=== PATIENT | male | born 2000 | race Two or more races ===

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

== ENCOUNTER 2023-05-20 10:37 | Emergency (ER) | payer MEDICAID ==
[~2023-05-20] VITALS: Ht 167.6 cm; Wt 69.9 kg
[2023-05-20 12:10] VITALS: BP 113/83; PULSE 66; RESP 18; TEMP 98.1; O2SAT 99
[2023-05-20] MEDS ORDERED: IBUP-1454 PO (13:35)
[2023-05-20] MEDS ORDERED: CEPH500C PO (13:35)
== END 2023-05-20 13:42 | disposition home or self-care (01) ==
LOC: ER 10:37
DX: L73.9 Follicular disorder, unspecified (principal)

== ENCOUNTER 2024-04-27 14:37 | Inpatient (IN) | payer MEDICAID ==
[~2024-04-27] VITALS: Ht 162.6 cm; Wt 66.6 kg
[~2024-04-27 14:37] MED LIST: CEPH500C PO; IBUP-1454 PO
[2024-04-27 15:00] VITALS: PULSE 81; RESP 16; O2SAT 99
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
[2024-04-27] MEDS: SODIUM CHLORIDE 0.9% 1,000 ML IV ONE (15:16)
[2024-04-27 15:45] LABS: Basophils # (auto) 0 10 ^3/uL (0-0.2); Basophils % (auto) 0.4 % (0.0-2.0); Eosinophils # (auto) 0.1 10 ^3/uL (0-0.8); Eosinophils % (auto) 1.6 % (0.0-7.0); Hematocrit 48.1 % (41.0-53.0); Hemoglobin 16.6 g/dL (13.5-17.5); Lymphocytes # (auto) 1.7 10 ^3/uL (0.4-5.4); Lymphocytes % (auto) 26.1 % (10.0-50.0); Mean Corpuscular Hemoglobin 32.3 pg (28.0-32.0); Mean Corpuscular Hgb Conc. 34.5 g/dL (32.0-36.0); Mean Corpuscular Volume 93.5 fL (80.0-100.0); Monocytes # (auto) 0.4 10 ^3/uL (0-1.3); Monocytes % (auto) 6.8 % (0.0-12.0); Neutrophils # (auto) 4.2 10 ^3/uL (1.6-8.6); Neutrophils % (auto) 65.1 % (37.0-80.0); Nucleated Red Blood Cells % 0.2 %; Platelet Count (auto) 184 10^3/uL (140-450); Red Blood Cells 5.14 10^6/uL (4.5-5.90); Red Cell Distribution Width 13.5 % (11.8-14.3); White Blood Cell 6.4 10^3/uL (4.4-10.8)
[2024-04-27 15:50] LABS: Urine Bacteria None Seen /hpf (None Seen)
[2024-04-27] MEDS: levETIRAcetam 1000 mg/100ml 100 ML IV ONE (15:56)
[2024-04-27 16:12] LABS: Urine Blood Negative /uL (Negative); Urine Clarity Clear (Clear); Urine Color Colorless (Yellow); Urine Protein, UAD Negative (Negative); Urine Urobilinogen Normal (Negative); Urine WBC <1 /hpf (0 - 3); Urine pH 6.5 (5.0-9.0)
--- NOTE | 2024-04-27 16:12 | DVH ---
CHEST RADIOGRAPH Indication: syncope Technique: Single frontal view of the chest was obtained Comparison: None FINDINGS: Lines and Tubes: None Lungs: No focal consolidation. Pleura: No effusion. No pneumothorax. Cardiomediastinal contours: Unremarkable Bones: No acute osseous abnormality. IMPRESSION: No acute cardiopulmonary disease.
[2024-04-27 16:15] LABS: Amphetamine Screen, Urine Neg (NEGATIVE); Barbiturate Scree,Urine Neg (NEGATIVE); Benzodiazephine Screen, Urine Neg (NEGATIVE); Cannabinoid Screen, Urine Neg (NEGATIVE); Cocaine Screen, Urine Neg (NEGATIVE); Opiate Scree,Urine Neg (NEGATIVE); Phencyclidine Screen, Urine Neg (NEGATIVE)
--- NOTE | 2024-04-27 16:17 | DVH ---
EXAM: CT HEAD WITHOUT CONTRAST INDICATION: syncope TECHNIQUE: CT of the head without intravenous contrast. Radiation Dose Information: CT Dose: CTDI volume is 52.98 mGy. Dose-length product is 849.43 mGy*cm The dose indicators for CT are the volume Computed Tomography (CT) Dose Index (CTDIvol) and the Dose Length Product (DLP), and are measured in units of mGy and mGy-cm, respectively. These indicators are not patient dose, but values generated from the CT scanner acquisition factors. The report includes radiation exposure data for exposures received during this examination. COMPARISON: None FINDINGS: There is no evidence of acute intracranial hemorrhage, extra-axial collection, mass effect, midline s hift, herniation or hydrocephalus. The ventricles, sulci and cisterns are age appropriate. The liz-white differentiation is intact. Patchy periventricular and subcortical white matter hypoattenuation is nonspecific but may be related to small vessel ischemic disease. The visualized paranasal sinuses and mastoid air cells are clear. The surrounding soft tissues and osseous structures are unremarkable. IMPRESSION: 1. No acute intracranial hemorrhage.' 2. No CT findings of territorial ischemia.
[2024-04-27 16:45] LABS: Alanine Aminotransferase 19 U/L (7-40); Albumin 4.6 g/dL (3.2-4.8); Anion Gap 9 (5-15); BUN/Creatinine Ratio 10.1 (10.0-20.0); Blood Urea Nitrogen 9 mg/dL (9-23); Calcium 9.7 mg/dL (8.7-10.4); Carbon Dioxide 25 mmol/L (20-31); Glucose 96 mg/dL (74-106); Potassium 4.1 mmol/L (3.5-5.1); Sodium 142 mmol/L (136-145)
[2024-04-27 16:46] LABS: Bilirubin, Total 0.5 mg/dL (0.2-1.0)
[2024-04-27 16:47] LABS: Alkaline Phosphatase 143 U/L (46-116); Aspartate Aminotransferase < 8 U/L (13-40); Blood Alcohol < 3.0 mg/dL (<10); Chloride 108 mmol/L (98-107)
[2024-04-27 19:24] VITALS: PULSE 83; RESP 13; O2SAT 98
[2024-04-27] MEDS ORDERED: HYDROcodone-ACET 5/325MG TAB PO PRN (21:00)
[2024-04-27] MEDS ORDERED: ONDANSETRON HCL 4 MG/2 ML VIAL IV PRN (21:00)
[2024-04-27] MEDS ORDERED: ACETAMINOPHEN 325 MG TAB PO PRN (21:00)
[2024-04-27] MEDS ORDERED: DOCUSATE SOD 100 MG CAP PO PRN (21:00)
[2024-04-27] MEDS: SODIUM CHLOR 0.9% PF (SALINE LOCK) 10ML VIAL/SYR IV SCH (22:11)
[2024-04-27] MEDS ORDERED: NITROGLYCERIN 0.4 MG SL TAB SL PRN (22:30)
[2024-04-27] MEDS ORDERED: MORPHINE SULFATE INJ 2 MG/ml SYRG IV PRN (22:30)
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
[2024-04-27] MEDS ORDERED: CARB200T4 PO (23:47)
[2024-04-28] MEDS: levETIRAcetam 500 mg/100ml 100 ML IV SCH (02:33)
[2024-04-28 07:03] LABS: Basophils # (auto) 0.1 10 ^3/uL (0-0.2); Basophils % (auto) 1.4 % (0.0-2.0); Eosinophils # (auto) 0.2 10 ^3/uL (0-0.8); Eosinophils % (auto) 4.3 % (0.0-7.0); Hematocrit 44.5 % (41.0-53.0); Hemoglobin 15.5 g/dL (13.5-17.5); Lymphocytes # (auto) 2.1 10 ^3/uL (0.4-5.4); Lymphocytes % (auto) 52.3 % (10.0-50.0); Mean Corpuscular Hemoglobin 32.7 pg (28.0-32.0); Mean Corpuscular Hgb Conc. 34.8 g/dL (32.0-36.0); Mean Corpuscular Volume 93.9 fL (80.0-100.0); Monocytes # (auto) 0.3 10 ^3/uL (0-1.3); Monocytes % (auto) 7.5 % (0.0-12.0); Neutrophils # (auto) 1.4 10 ^3/uL (1.6-8.6); Neutrophils % (auto) 34.5 % (37.0-80.0); Nucleated Red Blood Cells % 0.1 %; Platelet Count (auto) 170 10^3/uL (140-450); Red Blood Cells 4.74 10^6/uL (4.5-5.90); Red Cell Distribution Width 13.6 % (11.8-14.3); White Blood Cell 3.9 10^3/uL (4.4-10.8)
[2024-04-28 07:24] LABS: Alanine Aminotransferase 14 U/L (7-40); Albumin 4.2 g/dL (3.2-4.8); Anion Gap 7 (5-15); BUN/Creatinine Ratio 10.5 (10.0-20.0); Bilirubin, Total 0.6 mg/dL (0.2-1.0); Calcium 9.7 mg/dL (8.7-10.4); Carbon Dioxide 27 mmol/L (20-31); Glucose 91 mg/dL (74-106); Potassium 4.2 mmol/L (3.5-5.1); Sodium 143 mmol/L (136-145); Total Protein 6.3 g/dL (5.7-8.2)
[2024-04-28 07:30] VITALS: PULSE 91; RESP 14; O2SAT 98
[2024-04-28 07:40] LABS: Alkaline Phosphatase 129 U/L (46-116); Aspartate Aminotransferase < 8 U/L (13-40); Blood Urea Nitrogen 9 mg/dL (9-23); Chloride 109 mmol/L (98-107)
--- NOTE | 2024-04-28 13:25 | DVHPN2 ---
Reviewed: Care Plan, H&P, Labs, Medications, Previous Orders, Radiology Changes from previous H/P or p: No Changes Eyes: No Pain, No Vision change, No Conjunctivae inflammation, No Eyelid inflammation, No Other, No Redness ENT: No Ear pain, No Ear discharge, No Nose pain, No Nose discharge, No Nose congestion, No Mouth pain, No Mouth swelling, No Throat pain, No Throat swelling, No Other Cardiovascular: No Chest Pain, No Palpitations, No Orthopnea, No Paroxysmal Noc. Dyspnea, No Edema, No Lt Headedness, No Other Respiratory: No Cough, No Dry, No Shortness of breath, No SOB with excertion, No Wheezing, No Hemoptysis, No Pleuritic Pain, No Sputum, No Other Gastrointestinal: No Nausea, No Vomiting, No Abdominal Pain, No Diarrhea, No Constipation, No Melena, No Hematochezia, No Other Genitourinary: No Dysuria, No Frequency, No Incontinence, No Hematuria, No Retention, No Other Musculoskeletal: No other, No neck pain, No shoulder pain, No arm pain, No back pain, No hand pain, No leg pain, No foot pain Skin: No Rash, No Lesions, No Jaundice, No Bruising, No Other Objective Vitals Vital Signs Date Time Temp Pulse Resp B/P (MAP) Pulse Ox O2 Delivery O2 Flow Rate FiO2 04/28/24 11:30 54 04/28/24 08:34 14 114/40 (64) 98 04/28/24 07:30 Room Air* 0 21 04/27/24 19:22 98.2 98.2 Intake/Output Intake and Output 04/28/24 07:00 Intake Total 1100 ml Output Total 850 ml Balance 250 ml Intake IV Total 1100 ml Output Urine Total 850 ml Medications Current Medications Medications Dose Ordered Sig/Kyung Route Start Time Stop Time Status Last Admin Dose Admin Levetiracetam 100 ml @ 400 mls/hr Q12H IV 04/28/24 03:00 04/28/24 02:33 400 MLS/HR Sodium Chloride 10 ml Q8HR IV 04/27/24 22:00 04/28/24 05:31 10 ML Acetaminophen/ Hydrocodone Bitart 1 tab Q4HP PRN PO 04/27/24 21:00 Ondansetron HCl 4 mg Q4HP PRN IV 04/27/24 21:00 Docusate Sodium 100 mg BIDPRN PRN PO 04/27/24 21:00 Acetaminophen 650 mg Q6HP PRN PO 04/27/24 21:00 Nitroglycerin 0.4 mg Q5MINP PRN SL 04/27/24 22:30 Morphine Sulfate 2 mg Q30M PRN IV 04/27/24 22:30 Laboratory Results Laboratory Tests 04/28/24 06:36 Chemistry Test 04/27/24 16:20 04/28/24 06:36 Albumin 4.6 g/dL (3.2-4.8) 4.2 g/dL (3.2-4.8) Calcium Level 9.7 mg/dL (8.7-10.4) 9.7 mg/dL (8.7-10.4) Total Protein 7.0 g/dL (5.7-8.2) 6.3 g/dL (5.7-8.2) Cardiac Markers Test 04/27/24 15:13 B-Type Natriuretic Peptide 1.45 pg/mL (0-100) LFT Test 04/27/24 16:20 04/28/24 06:36 Alanine Aminotransferase (ALT) 19 U/L (7-40) 14 U/L (7-40) Alkaline Phosphatase 143 U/L (46-116) H 129 U/L (46-116) H Aspartate Amino Transferase (AST) < 8 U/L (13-40) L < 8 U/L (13-40) L Total Bilirubin 0.5 mg/dL (0.2-1.0) 0.6 mg/dL (0.2-1.0) Urinalysis Test 04/27/24 15:39 Urine Color Colorless (Yellow) Urine Clarity Clear (Clear) Urine pH 6.5 (5.0-9.0) Urine Specific [place] 1.010 (1.001-1.035) Urine Protein Negative (Negative) Urine Ketones Negative (Negative) Urine Blood Negative /uL (Negative) Urine Nitrite Negative (Negative) Urine Bilirubin Negative (Negative) Urine Urobilinogen Normal mg/dL (Negative) Urine Leukocyte Esterase Negative /uL (Negative) Urine RBC <1 /hpf (0 - 3) Urine WBC <1 /hpf (0 - 3) Urine Squamous Epithelial Cells None seen /hpf (<5) Urine Bacteria None seen /hpf (None Seen) Urine Glucose Normal mg/dL (Normal) Labs and/or images reviewed: Labs reviewed by me, Image(s) reviewed by me Assessment/Plan Assessment/Plan Breakthrough seizures: Brigidora History of seizures Noncompliance CT head negative Plan discussed with: Patient Date of Service: Apr 28, 2024 Billing Provider: CHERELLE MCCLELLAN MD Common Visit Codes: [id number] INP/OBS CARE(HIGH) CHERELLE MCCLELLAN MD Apr 28, 2024 13:25
[2024-04-28 21:30] VITALS: BP 116/81; PULSE 68; RESP 20; TEMP 97.1; O2SAT 97
[2024-04-28 22:13] VITALS: BP 116/81; PULSE 68; RESP 20; TEMP 97.1; O2SAT 97
[2024-04-29 01:00] VITALS: BP 115/61; PULSE 71; RESP 18; TEMP 97.3; O2SAT 100
[2024-04-29 05:00] VITALS: BP 99/74; PULSE 69; RESP 18; TEMP 97.6; O2SAT 99
[2024-04-29 08:05] VITALS: PULSE 87
[2024-04-29 09:32] VITALS: BP 124/67; PULSE 83; RESP 15; TEMP 98.3; O2SAT 97
[2024-04-29 13:00] VITALS: BP 123/60; PULSE 68; RESP 15; TEMP 97.5; O2SAT 99
[2024-04-29 13:03] LABS: Hepatitis B Surface Antigen Negative (Negative)
[2024-04-29 13:24] LABS: Hepatitis C Antibody Negative (Negative)
[2024-04-29] MEDS ORDERED: KEP500T PO (13:26)
--- NOTE | 2024-04-29 15:22 | DVHDS2 ---
Discharge Summary Date of Admission Apr 27, 2024 at 22:29 Date of Discharge: Apr 29, 2024 Labs/Diagnostic Data: Laboratory Results Test 04/29/24 05:54 04/28/24 06:36 04/27/24 18:10 04/27/24 16:20 Hepatitis B Surface Antigen Negative (Negative) Hepatitis C Antibody Negative (Negative) White Blood Count 3.9 10^3/uL (4.4-10.8) Red Blood Count 4.74 10^6/uL (4.5-5.90) Hemoglobin 15.5 g/dL (13.5-17.5) Hematocrit 44.5 % (41.0-53.0) Mean Corpuscular Volume 93.9 fL (80.0-100.0) Mean Corpuscular Hemoglobin 32.7 pg (28.0-32.0) Mean Corpuscular Hemoglobin Concent 34.8 g/dL (32.0-36.0) Red Cell Distribution Width 13.6 % (11.8-14.3) Platelet Count 170 10^3/uL (140-450) Mean Platelet Volume 9.2 fL (6.9-10.8) Neutrophils (%) (Auto) 34.5 % (37.0-80.0) Lymphocytes (%) (Auto) 52.3 % (10.0-50.0) Monocytes (%) (Auto) 7.5 % (0.0-12.0) Eosinophils (%) (Auto) 4.3 % (0.0-7.0) Basophils (%) (Auto) 1.4 % (0.0-2.0) Neutrophils # (Auto) 1.4 10 ^3/uL (1.6-8.6) Lymphocytes # (Auto) 2.1 10 ^3/uL (0.4-5.4) Monocytes # (Auto) 0.3 10 ^3/uL (0-1.3) Eosinophils # (Auto) 0.2 10 ^3/uL (0-0.8) Basophils # (Auto) 0.1 10 ^3/uL (0-0.2) Nucleated Red Blood Cells 0.1 % Sodium Level 143 mmol/L (136-145) Potassium Level 4.2 mmol/L (3.5-5.1) Chloride Level 109 mmol/L (98-107) Carbon Dioxide Level 27 mmol/L (20-31) Anion Gap 7 (5-15) Blood Urea Nitrogen 9 mg/dL (9-23) Creatinine 0.86 mg/dL (0.700-1.30) Glomerular Filtration Rate Calc 126 mL/min (>90) BUN/Creatinine Ratio 10.5 (10.0-20.0) Serum Glucose 91 mg/dL (74-106) Calcium Level 9.7 mg/dL (8.7-10.4) Total Bilirubin 0.6 mg/dL (0.2-1.0) Aspartate Amino Transferase (AST) < 8 U/L (13-40) Alanine Aminotransferase (ALT) 14 U/L (7-40) Alkaline Phosphatase 129 U/L (46-116) Total Protein 6.3 g/dL (5.7-8.2) Albumin 4.2 g/dL (3.2-4.8) Troponin I High Sensitivity < 3 ng/L (</=54) Plasma/Serum Blood Alcohol < 3.0 mg/dL (<10) Test 04/27/24 15:39 04/27/24 15:13 04/27/24 14:56 Urine Color Colorless (Yellow) Urine Clarity Clear (Clear) Urine pH 6.5 (5.0-9.0) Urine Specific [place] 1.010 (1.001-1.035) Urine Protein Negative (Negative) Urine Ketones Negative (Negative) Urine Blood Negative /uL (Negative) Urine Nitrite Negative (Negative) Urine Bilirubin Negative (Negative) Urine Urobilinogen Normal mg/dL (Negative) Urine Leukocyte Esterase Negative /uL (Negative) Urine RBC <1 /hpf (0 - 3) Urine WBC <1 /hpf (0 - 3) Urine Squamous Epithelial Cells None seen /hpf (<5) Urine Bacteria None seen /hpf (None Seen) Urine Glucose Normal mg/dL (Normal) Urine Opiates Screen Neg (NEGATIVE) Urine Fentanyl Screen Neg (NEGATIVE) Urine Barbiturates Screen Neg (NEGATIVE) Urine Phencyclidine Screen Neg (NEGATIVE) Urine Amphetamines Screen Neg (NEGATIVE) Urine Benzodiazepines Screen Neg (NEGATIVE) Urine Cocaine Screen Neg (NEGATIVE) Urine Cannabinoids Screen Neg (NEGATIVE) Lactic Acid Level 1.7 mmol/L (0.4-2.0) B-Type Natriuretic Peptide 1.45 pg/mL (0-100) POC Glucose 93 mg/dl (70-106) Other Laboratory Tests 04/28/24 06:36 Brief Hx & Hospital Course: 3. Year old male with seizure disorder admitted for seizure. Patient was started on Keppra, no further seizure episode. Patient was previously on carbamazepine, however noncompliant. Patient will follow up with Neurology as outpatient. Family bedside, educated on seizure management at home Condition at Discharge: Good Final Diagnosis/Problems List seizure, likely non compliant Discharge Disposition: Home Discharge Instruct/Medications Diet: Regular Activity: No Restrictions, As Tolerated Follow Up/Referral: neurology Medications: [email or web address] [id number] Discharge Statement: "Patient was advised to return to the ER or call 911 if any headaches, dizziness, shortness of breath, chest pain, abdominal pain, bleeding, fevers, or worsening of medical condition. Patient was counseled about treatment plan, medications, possible side effects, patientverbalized understanding. All questions were answered to the best of my ability. This discharge took greater then 30 minutes in planning, reviewing documentation, counseling the patient, and discussing with other team members." ASSESSMENT ASSESSMENT Assessment seizure, likely non compliant Date of Service: Apr 29, 2024 Billing Provider: JYOTI EAST MD Common Visit Codes: [id number] DISCH DAY >30min JYOTI EAST MD Apr 29, 2024 15:22
== END 2024-04-29 14:48 | disposition home or self-care (01) | DRG 53 ==
LOC: ER 14:37 → TELE 22:29 → TELE-WESTW 04-28 21:27
PROVIDERS: ADMIT Nurse Practitioner Family; ATTEND Student in an Organized Health Care Education/Training Program
DX: G40.909 Epilepsy, unspecified, not intractable, without status epilepticus (principal); Z79.899 Other long term (current) drug therapy; Z91.199 Patient's noncompliance with other medical treatment and regimen due to unspecified reason
CPT/HCPCS: 36415; 70450; 71045; 80053; 80307; 80320; 81001; 82962; 83605; 83880; 84484; 85025; 86803; 87340; G0378